=== PATIENT | female | born 1990 ===

== ENCOUNTER 2022-11-13 19:50 | Observation (INO) ==
[2022-11-13] MEDS ORDERED: KETOROLAC TROMETHAMINE 15 MG/ML VIAL IV STA (20:13)
[2022-11-13] MEDS ORDERED: SODIUM CHLORIDE 0.9% 1000ML 1,000 ML IV ONE (20:13)
[2022-11-13] MEDS ORDERED: ONDANSETRON INJ 2 MG/ML 2 ML VIAL IV STA (20:13)
[2022-11-13 21:30] LABS: Appearance Urine Clear (Clear); Bacteria Urine Automated Negative (Negative); Bilirubin Urine Negative (Negative); Blood Urine Negative (Negative); Color Urine Dark Yellow; Epithelial Cell Urine Auto >30 /lpf (0-5); Glucose Urine UA Negative (Negative); Ketones Urine 1+ (Negative); Leukocyte Esterase Urine Trace (Negative); Nitrite Urine Negative (Negative); Protein Urine Trace (Negative); RBC Urine Automated 0-4 /hpf (0-4); Specific Gravity Urine 1.017 (1.000-1.030); Urobilinogen Urine Negative (Negative); pH Urine 6.5 (4.5-7.5)
[2022-11-13 21:33] LABS: iSTAT Creatinine 0.8 mg/dl (0.6-1.3); iSTAT Hemoglobin 13.3 g/dl (12.0-16.0); iSTAT Ionized Calcium 1.15 mmol/l (1.12-1.32); iSTAT Potassium 3.4 mmol/L (3.3-5.0)
[2022-11-13 21:46] LABS: Basophils # (auto) 0.03 K/uL (0-0.2); Basophils % (auto) 0.2 %; Hematocrit (blood only) 36.6 % (37.0-47.0); Hemoglobin 12.5 g/dl (12.0-16.0); Immature Granulocytes # (auto) 0.06 K/uL (0.01-0.20); Immature Granulocytes % (auto) 0.4 %; Lymphocytes # (auto) 1.31 K/uL (1.2-3.4); Lymphocytes % (auto) 8.7 %; Mean Corpuscular Hemoglobin 30.5 pg (25.0-34.0); Mean Corpuscular Hgb Conc 34.2 g/dL (32.0-36.0); Mean Corpuscular Volume 89.3 fL (80.0-100.0); Mean Platelet Volume 11.5 fL (9.4-12.4); Monocytes % (auto) 5.3 %; Neutrophils # (auto) 12.81 K/uL (1.40-6.50); Neutrophils % (auto) 85.4 %; Platelet Count 278 K/uL (130-400); RDW Coefficient of Variation 12.2 % (11.5-14.5); RDW Standard Deviation 39.8 fL (36.4-46.3); White Blood Count 15.01 K/ul (4.8-10.8)
[2022-11-13 21:56] LABS: Alanine Aminotransferase 9 U/L (7-52); Albumin Level 4.1 gm/dl (3.4-5.0); Alkaline Phosphatase 50 U/L (34-104); Anion Gap 9 (3-11); Aspartate Aminotransferase 18 U/L (13-39); BUN Creatinine Ratio 10.4 (10-20); Bilirubin Direct 0.1 mg/dl (0-0.2); Bilirubin,Total 0.8 mg/dl (0.2-1.0); Blood Urea Nitrogen 8 mg/dl (6-23); Calcium 8.8 mg/dl (8.6-10.3); Carbon Dioxide 23 mmol/L (21-32); Chloride 101 mmol/L (98-107); Est GFR (African American) 117.6 ml/min; Est GFR (Non-African American) 101.4 ml/min; Glucose 108 mg/dl (70-99(Fasting)); Lipase 10 U/L (11-82); Potassium 3.5 mmol/L (3.5-5.1); Sodium 133 mmol/L (136-145); Total Protein 7.1 gm/dl (6.0-8.3)
--- NOTE | 2022-11-13 22:36 | Emergency Department Note ---
History of Present Illness General Chief Complaint: Abdominal Pain Stated Complaint: ABDOMINAL PAIN,FEVERISH,ACHY,VOMITING Time Seen by Provider: 11/13/22 19:59 History of Present Illness Provider Complaint: abdominal pain Onset (ago): 2 day(s) Pain Consistency: intermittent Location: periumbilical Radiation: RLQ Severity: mild Maximum Pain Intensity: 3 Current Pain Intensity: 3 Quality: + stabbing and + sharp Relieved By: + nothing Exacerbated By: + nothing Context: no foreign travel, no possible food poisoning, no sick contacts, no recent antibiotic use, no recent surgery/procedure or no recent injury Associated Symptoms: + nausea, + vomiting and + chills; no diarrhea, no hematemesis, no hematochezia, no melena, no hematuria and no headache Treatments prior to arrival: NSAIDs Related Data Patient Confirmed : No Home Medications Medication Instructions Recorded Confirmed Type nitrofurantoin 100 mg PO BID 11/13/22 11/13/22 History monohydrate/macrocrystals 100 mg capsule ondansetron 4 mg disintegrating 4 mg PO UD PRN Nausea 11/13/22 11/13/22 History tablet Allergies Allergy/AdvReac Type Severity Reaction Status Date / Time No Known Allergies Allergy Verified 11/13/22 21:27 Past Med/Surg History Medical History No pertinent family history No pertinent past medical history Surgical History No pertinent past surgical history Social History Smoking Status: Never smoker Preferred Language: Sri [place]ankan Feels Safe at Home: Yes Physical Exam Vital Signs: Vital Signs - 24 hr 11/13/22 19:56 11/13/22 21:00 11/13/22 21:00 Temperature 37.3 C Temperature Source Temporal Artery Sc an Pulse Rate 100 H 82 Pulse Rate [Bilate ral] 85 Respiratory Rate 20 18 18 Respiratory Effort / Characteristics Non-Labored Sponta neous Respiratory Depth Normal Blood Pressure 138/78 Blood Pressure [Le ft Arm] 113/64 Blood Pressure Mallory n 98 Blood Pressure Mallory n [Left Arm] 80 Pulse Oximetry 100 97 96 Oxygen Delivery Me thod Room Air Room Air Room Air Sepsis Recent Feve r Within 48 Hours Yes Sepsis New/Unexpla ined Change in Men brea Status No Sepsis Action Take n by Nursing No Action Required 11/13/22 22:41 11/14/22 00:14 Temperature Temperature Source Pulse Rate Pulse Rate [Bilate ral] 80 96 H Respiratory Rate 18 20 Respiratory Effort / Characteristics Non-Labored Sponta neous Respiratory Depth Normal Blood Pressure Blood Pressure [Le ft Arm] 116/58 L 112/86 Blood Pressure Mallory n Blood Pressure Mallory n [Left Arm] 77 94 Pulse Oximetry 97 96 Oxygen Delivery Me thod Room Air Sepsis Recent Feve r Within 48 Hours Sepsis New/Unexpla ined Change in Men brea Status Sepsis Action Take n by Nursing Physical Exam: Physical Exam GENERAL: She is oriented to person, place, and time. She appears well-developed and well-nourished. She does not appear distressed. HENT: Exam performed. -Head: Normocephalic and atraumatic. -Right Ear: External ear normal. No mastoid erythema -Left Ear: External ear normal. No mastoid erythema -Mouth/Throat: The oropharynx is clear and moist. No trismus in the jaw. No dental abscesses or uvula swelling. No oropharyngeal exudate or tonsillar abscesses. EYES: Conjunctivae and EOM are normal.Right eye exhibits no discharge. Left eye exhibits no discharge. No scleral icterus. NECK: Normal range of motion. Neck supple. No JVD present. No tracheal deviation and normal range of motion present. CV: Normal rate, regular rhythm, normal heart sounds and intact distal pulses. There is no peripheral edema. Palpable radial pulses bue. PULM/CHEST: Effort normal and breath sounds normal. No respiratory distress. No stridor. She has no wheezes. She has no rales. -Chest Wall: She exhibits no tenderness. ABD: The abdomen is soft. Bowel sounds are normal. She has no distension. No mass is present. There is tenderness to palpation of the right lower quadrant and suprapubic area. There is rebound tenderness. No guarding, no Avila's sign. Rovsig negative MUSC/SKEL: Normal range of motion. There is no peripheral edema, tenderness or deformity. NEURO: Motor and sensation grossly intact. SKIN: Skin is warm and dry. She is not diaphoretic. PSYCH: She has a normal mood and affect. Behavior is normal. Judgment and thought content normal. Course Course 1958: The patient was evaluated in room C8. A complete history and physical exam was performed Cardiac monitoring: An order was placed for continuous cardiac monitoring. The monitor shows a rate of 80 with sinus rhythm interpreted by wa 2335: Vital signs stable. Labs show leukocytosis of 15. Imaging shows acute appendicitis with microperforation. Discussed case with Raul Mccormick PA-C for Dr. Benitez states he will be down to evaluate the patient. Zosyn ordered for the patient. 0015: Surgery team Raul Mccormick states that he discussed the case with Dr. Benitez and they will admit the patient to their service tonight and plan on operating the patient in the morning. He asked that LR be ordered for the p atient and patient kept NPO. Administered Medications Discontinued Medications Sodium Chloride (Nss 1000ml) 1,000 mls @ 999 mls/hr IV .[id number] ONE Stop: 11/13/22 21:13 Last Infusion: 11/13/22 22:40 Dose: 0 mls/hr Documented By: Admin: 11/13/22 21:00 Dose: 999 mls/hr Documented By: THEODORE Piperacillin Sod/Tazobactam Sod (Zosyn) 4.5 gm in 120 mls @ 240 mls/hr IV NOW ONE Stop: 11/13/22 23:58 Last Infusion: 11/14/22 00:42 Dose: 0 mls/hr Documented By: Admin: 11/14/22 00:12 Dose: 240 mls/hr Documented By: FRANCESCA Lactated Ringer's (Lr) 1,000 mls @ 80 mls/hr IV .[id number] ELISE Stop: 12/14/22 00:14 Last Admin: 11/14/22 00:43 Dose: Not Given Documented By: FRANCESCA Ioversol (Optiray 320 100ml) 93 ml IV ONCE ONE Stop: 11/13/22 23:06 Last Admin: 11/13/22 23:05 Dose: 93 ml Documented By: CARISA Ketorolac Tromethamine (Ketorolac Tromethamine 15 Mg/Ml Vial) 15 mg IV NOW STA Stop: 11/13/22 20:14 Last Admin: 11/13/22 20:49 Dose: 15 mg Documented By: THEODORE Ondansetron HCl (Ondansetron Inj 2 Mg/Ml 2 Ml Vial) 4 mg IV NOW STA Stop: 11/13/22 20:14 Last Admin: 11/13/22 20:49 Dose: 4 mg Documented By: THEODORE Medical Decision Making Laboratory Data Attestation: I reviewed the patient's lab results. 11/13/22 21:10 11/13/22 21:10 Lab Results 11/13/22 11/13/22 11/13/22 Range/Units 21:10 21:10 21:10 WBC 15.01 H (4.8-10.8) K/ul RBC 4.10 L (4.20-5.40) M/uL Hgb 12.5 (12.0-16.0) g/dl POC Hgb (12.0-16.0) g/dl Hct 36.6 L (37.0-47.0) % POC Hct (37-47) % MCV 89.3 (80.0-100.0) fL MCH 30.5 (25.0-34.0) pg MCHC 34.2 (32.0-36.0) g/dL RDW Std Deviation 39.8 (36.4-46.3) fL RDW Coeff of Wagner 12.2 (11.5-14.5) % Plt Count 278 (130-400) K/uL MPV 11.5 (9.4-12.4) fL Immature Gran % (Auto) 0.4 % Neut % (Auto) 85.4 % Lymph % (Auto) 8.7 % [place] % (Auto) 5.3 % Eos % (Auto) 0.0 % Baso % (Auto) 0.2 % Neut # (Auto) 12.81 H (1.40-6.50) K/uL Lymph # (Auto) 1.31 (1.2-3.4) K/uL [place] # (Auto) 0.80 H (0.11-0.59) K/uL Eos # (Auto) 0.00 (0-0.50) K/uL Baso # (Auto) 0.03 (0-0.2) K/uL Immature Gran # (Auto) 0.06 (0.01-0.20) K/uL POC Sodium (135-144) mmol/L Sodium 133 L (136-145) mmol/L POC Potassium (3.3-5.0) mmol/L Potassium 3.5 (3.5-5.1) mmol/L POC Chloride (101-112) mmol/L Chloride 101 (98-107) mmol/L Carbon Dioxide 23 (21-32) mmol/L POC Total CO2 (24-31) mmol/L Anion Gap 9 (3-11) POC Anion Gap (16-25) mmol/L POC BUN (7-18) mg/dl BUN 8 (6-23) mg/dl Creatinine 0.77 (0.6-1.2) mg/dl POC Creatinine (0.6-1.3) mg/dl Est Cr Clr Drug Dosing Not Reportable Est GFR ( Amer) 117.6 ml/min Est GFR (Non-Af Amer) 101.4 ml/min BUN/Creatinine Ratio 10.4 (10-20) Glucose 108 H (70-99(Fasting)) mg/dl POC Glucose (other) (70-99) mg/dl Calcium 8.8 (8.6-10.3) mg/dl POC Ioniz Calcium Sonia (1.12-1.32) mmol/l Total Bilirubin 0.8 (0.2-1.0) mg/dl Direct Bilirubin 0.1 (0-0.2) mg/dl AST 18 (13-39) U/L ALT 9 (7-52) U/L Alkaline Phosphatase 50 (34-104) U/L Total Protein 7.1 (6.0-8.3) gm/dl Albumin 4.1 (3.4-5.0) gm/dl Lipase 10 L (11-82) U/L HCG, Qual (Negative) Urine Color Dark Yellow Urine Appearance Clear (Clear) Urine pH 6.5 (4.5-7.5) Ur Specific [place] 1.017 (1.000-1.030) Urine Protein Trace H (Negative) Urine Glucose (UA) Negative (Negative) Urine Ketones 1+ H (Negative) Urine Blood Negative (Negative) Urine Nitrite Negative (Negative) Urine Bilirubin Negative (Negative) Urine Urobilinogen Negative (Negative) Ur Leukocyte Esterase Trace H (Negative) Urine WBC (Auto) 1-5 (0-5) /hpf Urine RBC (Auto) 0-4 (0-4) /hpf U Hyaline Cast (Auto) 1-5 (0-5) /lpf U Epithel Cells (Auto) >30 H (0-5) /lpf Urine Bacteria (Auto) Negative (Negative) SARS-CoV-2, RNA, NAAT (NEGATIVE) 11/13/22 11/13/22 11/13/22 Range/Units 21:10 21:20 23:40 WBC (4.8-10.8) K/ul RBC (4.20-5.40) M/uL Hgb (12.0-16.0) g/dl POC Hgb 13.3 (12.0-16.0) g/dl Hct (37.0-47.0) % POC Hct 39 (37-47) % MCV (80.0-100.0) fL MCH (25.0-34.0) pg MCHC (32.0-36.0) g/dL RDW Std Deviation (36.4-46.3) fL RDW Coeff of Wagner (11.5-14.5) % Plt Count (130-400) K/uL MPV (9.4-12.4) fL Immature Gran % (Auto) % Neut % (Auto) % Lymph % (Auto) % [place] % (Auto) % Eos % (Auto) % Baso % (Auto) % Neut # (Auto) (1.40-6.50) K/uL Lymph # (Auto) (1.2-3.4) K/uL [place] # (Auto) (0.11-0.59) K/uL Eos # (Auto) (0-0.50) K/uL Baso # (Auto) (0-0.2) K/uL Immature Gran # (Auto) (0.01-0.20) K/uL POC Sodium 134 L (135-144) mmol/L Sodium (136-145) mmol/L POC Potassium 3.4 (3.3-5.0) mmol/L Potassium (3.5-5.1) mmol/L POC Chloride 98 L (101-112) mmol/L Chloride (98-107) mmol/L Carbon Dioxide (21-32) mmol/L POC Total CO2 21 L (24-31) mmol/L Anion Gap (3-11) POC Anion Gap 20.0 (16-25) mmol/L POC BUN 7 (7-18) mg/dl BUN (6-23) mg/dl Creatinine (0.6-1.2) mg/dl POC Creatinine 0.8 (0.6-1.3) mg/dl Est Cr Clr Drug Dosing Est GFR ( Amer) ml/min Est GFR (Non-Af Amer) ml/min BUN/Creatinine Ratio (10-20) Glucose (70-99(Fasting)) mg/dl POC Glucose (other) 112 H (70-99) mg/dl Calcium (8.6-10.3) mg/dl POC Ioniz Calcium Sonia 1.15 (1.12-1.32) mmol/l Total Bilirubin (0.2-1.0) mg/dl Direct Bilirubin (0-0.2) mg/dl AST (13-39) U/L ALT (7-52) U/L Alkaline Phosphatase (34-104) U/L Total Protein (6.0-8.3) gm/dl Albumin (3.4-5.0) gm/dl Lipase (11-82) U/L HCG, Qual Negative (Negative) Urine Color Urine Appearance (Clear) Urine pH (4.5-7.5) Ur Specific [place] (1.000-1.030) Urine Protein (Negative) Urine Glucose (UA) (Negative) Urine Ketones (Negative) Urine Blood (Negative) Urine Nitrite (Negative) Urine Bilirubin (Negative) Urine Urobilinogen (Negative) Ur Leukocyte Esterase (Negative) Urine WBC (Auto) (0-5) /hpf Urine RBC (Auto) (0-4) /hpf U Hyaline Cast (Auto) (0-5) /lpf U Epithel Cells (Auto) (0-5) /lpf Urine Bacteria (Auto) (Negative) SARS-CoV-2, RNA, NAAT NEGATIVE (NEGATIVE) [facility] Narrative 1959: The patient was evaluated in room C8. A complete history and physical exam was performed Cardiac monitoring: An order was placed for continuous cardiac monitoring. The monitor shows a rate of 80 with sinus rhythm interpreted by me 2335: Vital signs stable. Labs show leukocytosis of 15. Imaging shows acute appendicitis with microperforation. Discussed case with Raul Mccormick PA-C for Dr. Benitez states he will be down to evaluate the patient. Zosyn ordered for the patient. 0015: Surgery team Raul Mccormick states that he discussed the case with Dr. Benitez and they will admit the patient to their service tonight and plan on operating the patient in the morning. He asked that LR be ordered for the patient and patient kept NPO. Impression & Plan Appendicitis Discharge Plan Visit Data Chief Complaint: Abdominal Pain Stated Complaint: ABDOMINAL PAIN,FEVERISH,ACHY,VOMITING ED Provider: Peng Sarkar Discharge Problem: Appendicitis Patient Disposition: Admitted As Inpatient Forms Stand Alone Forms: [facility] Prescriptions Prescriptions: No Action ondansetron 4 mg tablet,disintegrating 4 mg PO UD PRN (Reason: Nausea) nitrofurantoin monohyd/m-cryst 100 mg capsule 100 mg PO BID Referrals Referrals: PCP,NO [Primary Care Provider] -
[2022-11-13] MEDS ORDERED: OPTIRAY 320 100ml IV ONE (23:05)
--- NOTE | 2022-11-13 23:27 | CT Scan Report ---
Exam(s): CT ABDOMEN + PELVIS With Contrast IV Amt: 93ml optiray 320 EXAM: CT Abdomen and Pelvis With Intravenous Contrast CLINICAL HISTORY: Reason for exam: RLQ pain ro appy. TECHNIQUE: Axial computed tomography images of the abdomen and pelvis with intravenous contrast. CTDI is 27.98 mGy and DLP is 1386.69 mGy-cm. Automated exposure control was utilized for the study. A dose lowering technique was utilized adhering to the principles of ALARA. CONTRAST: Patient received 93ml optiray 320 of IV contrast COMPARISON: No relevant prior studies available. FINDINGS: Lung bases: Unremarkable. No mass. No consolidation. ABDOMEN: Liver: Unremarkable. No mass. Gallbladder and bile ducts: Unremarkable. No calcified stones. No ductal dilation. Pancreas: Unremarkable. No mass. No ductal dilation. Spleen: Unremarkable. No splenomegaly. Adrenals: Unremarkable. No mass. Kidneys and ureters: Unremarkable. No solid mass. No hydronephrosis. Stomach and bowel: Unremarkable. No obstruction. No mucosal thickening. PELVIS: Appendix: Positive for appendicitis, consisting of a distended appendix measuring up to 12 mm. Mild-moderate periappendiceal fat stranding. Small foci of extra luminal air, concerning for microperforation. See series 300 image 26. Bladder: Unremarkable. No mass. Reproductive: Unremarkable as visualized. ABDOMEN and PELVIS: Intraperitoneal space: Unremarkable. No free air. No significant fluid collection. Bones/joints: No acute fracture. No dislocation. Soft tissues: Unremarkable. Vasculature: Unremarkable. No abdominal aortic aneurysm. Lymph nodes: Unremarkable. No enlarged lymph nodes. IMPRESSION: Positive for appendicitis, consisting of a distended appendix measuring up to 12 mm. Mild-moderate periappendiceal fat stranding. Small foci of extra luminal air, concerning for microperforation. Surgical evaluation recommended. Communications: Call Doctor Other Electronically signed by: Farhan Kim MD 11/13/22 23:26 PM
[2022-11-13] MEDS ORDERED: PIPERACILLIN/TAZOBACTAM 4.5 GM/120 ML BAG IV ONE (23:29)
[2022-11-14] MEDS ORDERED: LACTATED RINGER'S 1,000 ML IV SCH (00:15)
[2022-11-14] MEDS ORDERED: ONDANSETRON INJ 2 MG/ML 2 ML VIAL IV PRN ×2 (00:38→07:53)
[2022-11-14] MEDS ORDERED: ACETAMINOPHEN 1,000 MG/100 ML VIAL IV PRN (00:38)
--- NOTE | 2022-11-14 00:38 | History & Physical Report ---
Date of Service November 14, 2022 Assessment & Plan (1) Appendicitis: Plan: Due to the patient's clinical presentation, findings on imaging, and laboratories we will admit her to the hospital and proceed as follows: Analgesia will be provided Antiemetics will be provided We will implement n.p.o. status We will hydrate her with intravenous fluids The treating emergency room physician has already initiated antibiotics in the form of Zosyn which we will continue We are tentatively planning on an appendectomy with Dr. Benitez in the morning of 11/14/2022. I have discussed with patient's the risks, benefits, alternatives, and risks of not having the procedure. I have outlined the expected postoperative recovery and she wishes to proceed. We would like to treat the patient initially with antibiotics and the treatment plan outlined above. At the present time the patient is noted to be normotensive with a blood pressure of 112/86. The patient is noted to have a heart rate that ranges between 82 and 100. She has been afebrile since arrival to the emergency department and her respirations are nonlabored. Her pulse oximetry has been 96 to 100% on room air. Review of the chart reveals patient has not had a test performed yet so we will obtain that prior to proceeding with surgery A COVID test has been performed and is noted to be negative. Additional recommendations be forthcoming based on patient's clinical course as it unfolds including findings at time of surgery and her postoperative recovery thereafter. SCDs were used for DVT prevention, no chemical means due to planned surgery She will be a level 1 full code The above plan was discussed with my attending physician Dr. Benitez. Addendum: Serum BHCG results noted and are (-) as above. discussed options/risks of lap appy (bleeding/infection/injury to an organ/blood clots etc....) questions answered. will proceed with lap appy this AM. History of Present Illness Chief Complaint: Abdominal pain Primary Care Provider: NO PCP This is a 32-year-old female who presented to [facility] emergency department secondary to abdominal pain. The patient noted that she was in her usual state of health feeling perfectly fine until the morning of 11/12/2022 when she developed abdominal pain. She noted that the pain was throughout her abdomen in a generalized fashion along with some bloating. She did have associated nausea and vomiting. She did not take her temperature but felt feverish. She does note that the pain was better when she would lie still and it was worse with certain movements. She does note that over the course of the past 24 hours the pain is now shifted to her lower abdomen and is present in a bandlike fashion across her lower abdomen. Because of her symptomatology she presented to a [facility] where she was given an antiemetic and treated for urinary tract infection. The patient does note that she does not have any urinary symptoms such as dysuria or urinary frequency. As the pain has been ongoing she subsequently presented to the emergency department. She denies any prior abdominal surgeries. She notes that she has not had any solid intake in approximate 24 hours but did consume some water throughout the day. Since arrival to the hospital the patient has had labs and imaging which I independently reviewed. CT scan of the abdomen pelvis was performed. On this study the patient was noted to have a distended appendix measuring approximate 12 mm. There is mild to moderate periappendiceal fat stranding and there is a small foci of extraluminal air concerning for a microperforation. There is no intraperitoneal free air. There is no intraperitoneal free fluid. There is no evidence of small bowel obstruction and there is no evidence of biliary disease on the study. Labs include a CBC her white blood cell count was elevated at 15.0. Hemoglobin and platelet count were noted to be within the normal range. The patient's hematocrit was slightly low at 36.6. Chemistry profile showed sodium is 133 with a potassium of 3.5. BUN and creatinine were both within normal range. There is no elevation of patient's LFTs or lipase. A COVID test was performed and was noted to be negative. The patient notes that she leads a very active lifestyle caring for her horses as well as going to a gym approximately 3 times per week where she can do cardiovascular exercise without any limiting factors specifically stating she does not ever get chest pain or shortness of breath. At the time of my interview the patient was resting comfortably in bed and she was in no distress. Concerning past medical history the patient denies any medical problems. Concerning past surgical history the patient has never had any surgeries. Concerning social history patient is currently non-smoker. She did admit to trying cigarettes when she was in her 20s but was not a consistent every day smoker. Concerning family history she does not report any family history of premature cardiovascular disease Allergies Allergy/AdvReac Type Severity Reaction Status Date / Time No Known Allergies Allergy Verified 11/13/22 21:27 Home Medications Medication Instructions Recorded Confirmed Type nitrofurantoin 100 mg PO BID 11/13/22 11/13/22 History monohydrate/macrocrystals 100 mg capsule ondansetron 4 mg disintegrating 4 mg PO UD PRN Nausea 11/13/22 11/13/22 History tablet Past Med/Surg History Medical History No pertinent family history No pertinent past medical history Surgical History No pertinent past surgical history Social History Smoking Status: Never smoker Hx Alcohol Use: Yes Alcohol type: wine Hx Substance Use: No Preferred Language: [place] Communication Ability: Effective Nurse Office Required: No Beliefs That Will Affect Care: None Current Living Situation: Significant Other Other Information That Helps Us Care for You: No Feels Safe at Home: Yes Safety Concerns: Feels Safe At This Time Review of Systems Constitutional: + fever (Patient reports subjective fevers but did not take her temperature) Ear, Nose, Mouth, Throat: no hearing loss Respiratory: no cough and no dyspnea Cardiovascular: no chest pain Gastrointestinal: as per Subjective / HPI Genitourinary: no dysuria Musculoskeletal: no back pain Integumentary: no rash Neurologic: no localized weakness Physical Exam Constitutional: WD/WN, vitals as above Eyes: no conjunctival abnormality ENMT: Ears: no hearing impairment and no external ear abnormality Mouth: no oropharynx abnormality Neck: trachea midline Respiratory: normal respiratory effort, lungs clear to auscultation Cardiovascular: Rate/Rhythm: regular rate and regular rhythm Vessels: dorsalis pedis pulses present and radial pulses present Gastrointestinal (Abdomen): Abdomen is soft without distention. It is nonrigid. Bowel sounds are hypoactive. Patient did have pain with palpation greatest in the right lower quadrant of her abdomen with some associated guarding. She did have some slight rebound tenderness. Musculoskeletal: No calf tenderness Skin: no rashes Neurologic: moves all extremities Psychiatric: A+Ox3, euthymic affect Results & Data Results & Data Vital Signs (Past 12 Hours) Vital Signs Temp Pulse Pulse Resp BP BP Pulse Ox 11/14/22 00:14 96 H 20 112/86 96 11/13/22 22:41 80 18 116/58 L 97 11/13/22 21:00 82 18 96 11/13/22 21:00 85 18 113/64 97 11/13/22 19:56 37.3 C 100 H 20 138/78 100 O2 Del Method 11/14/22 00:14 Room Air 11/13/22 22:41 11/13/22 21:00 Room Air 11/13/22 21:00 Room Air 11/13/22 19:56 Room Air PG Care Time/CCT Total # of Minutes Spent Total Time Spent with Patient: Total time spent is greater than 50% in coordination of care (as documented) at patient's floor/unit and/or counseling patient: Coding Level of Care Code 80196 INT INP/OBS CARE 3/75MIN Diagnoses Appendicitis K37
[2022-11-14 00:57] LABS: Pregnancy Test, Serum Negative (Negative)
[2022-11-14] MEDS: LACTATED RINGER'S 1,000 ML IV SCH ×3 (02:10→17:09)
[2022-11-14] MEDS: MoRPHine SULFATE 4 MG/ML 1 ML CARP\\VIAL IV PRN ×2 (05:26→10:19)
[2022-11-14] MEDS: PIPERACILLIN/TAZOBACTAM 4.5 GM in DEXTROSE 5% 100 ML IV SCH ×3 (06:07→21:44)
--- NOTE | 2022-11-14 07:10 | Anesthesiology Consultation ---
Date of Service November 14, 2022 Assessment & Plan Chart Review Chart Review: Acceptable Risk for Surgery and Patient NOT seen in Pre Admission Testing Consults Requested none ASA [id number] Proposed Anesthesia Anesthesia Type: General Risk / Benefits Reviewed With: PT / POA / Parent / Guardian, Accepts Plan and Informed Consent Obtained History Surgery Operation Date: 11/14/22 13:00 Proposed Procedures p Laparoscopic Appendectomy - Gee Benitez, DO Height/Weight Height: 5 ft 6 in Weight: 91.1 kg Allergies Allergy/AdvReac Type Severity Reaction Status Date / Time No Known Allergies Allergy Verified 11/13/22 21:27 Medications Home Medications Medication Instructions Recorded Confirmed Last Taken nitrofurantoin 100 mg PO BID 11/13/22 11/13/22 Unknown monohydrate/macrocrystals 100 mg capsule ondansetron 4 mg disintegrating 4 mg PO UD PRN Nausea 11/13/22 11/13/22 Unknown tablet Active Medications Generic Name Dose Route Start Last Admin Trade Name Freq PRN Reason Stop Dose Admin Lactated Ringer's 1,000 mls @ 125 mls/hr 11/14/22 00:45 11/14/22 06:10 Lr IV 12/14/22 00:44 0 mls/hr .Q8H ELISE Infusion Piperacillin Sod/Tazobactam 120 mls @ 30 mls/hr 11/14/22 06:00 11/14/22 06:07 Sod 4.5 gm/ Dextrose IV 11/24/22 05:59 30 mls/hr Q8H ELISE Administration Protocol Morphine Sulfate 3 mg 11/14/22 00:38 11/14/22 05:26 Morphine Sulfate 4 Mg/Ml 1 Ml Carp\Vial IV 11/28/22 00:37 3 mg Q3H PRN Administration Severe Pain (Scale 7, 8, 9,10) NPO Date Last Intake of Fluids: 11/13/22 Time Last Intake of Fluids: 18:00 Date Last Intake of Solids: 11/13/22 Time Last Intake of Solids: 17:00 Past Medical History Medical History No pertinent family history No pertinent past medical history Exercise / Class Metabolic Activity II 4-5 Yardwork/Stairs/Walk up hill Past Surgical History Surgical History No pertinent past surgical history Past Anesthesia History No Hx of Anesthesia Complications and No Family Hx of Anesthesia Complications History of PONV No Hx of PONV and No Hx of Motion Sickness Social History Smoking Status: Never smoker Hx Alcohol Use: Yes Alcohol type: wine alcohol intake frequency: a few times a month Hx Substance Use: No Physical Exam Vital Signs Last Vital Signs Temp 37.2 C 11/14/22 06:32 Pulse 95 H 11/14/22 06:32 Resp 18 11/14/22 06:32 BP 141/86 H 11/14/22 06:32 Pulse Ox 100 11/14/22 06:32 O2 Del Method Room Air 11/14/22 06:32 Constitutional + obese; no acute distress ENMT Mouth: no dentition abnormality Thyromental Distance: < 3.5 Finger Breadths Mallampati Class: II Neck normal visual inspection and trachea midline; neck extension not limited Respiratory normal respiratory effort Auscultation: lungs clear to auscultation bilaterally Cardiovascular Rate/Rhythm: regular rate and regular rhythm Heart Sounds: no murmur Vessels: no carotid bruit Musculoskeletal Spine: normal cervical ROM and no pain with cervical ROM Extremities: extremities normal to inspection; full ROM of extremities Neurologic moves all extremities Motor/Sensory: no sensory deficit Psychiatric Orientation: alert and oriented x 3 Testing Laboratory Results 11/13/22 21:10 11/13/22 21:10 Urine Color Dark Yellow 11/13/22 21:10 Urine Appearance Clear (Clear) 11/13/22 21:10 Urine pH 6.5 (4.5-7.5) 11/13/22 21:10 Ur Specific Fromberg 1.017 (1.000-1.030) 11/13/22 21:10 Urine Protein Trace (Negative) H 11/13/22 21:10 Urine Glucose (UA) Negative (Negative) 11/13/22 21:10 Urine Ketones 1+ (Negative) H 11/13/22 21:10 Urine Nitrite Negative (Negative) 11/13/22 21:10 Ur Leukocyte Esterase Trace (Negative) H 11/13/22 21:10 Urine WBC (Auto) 1-5 /hpf (0-5) 11/13/22 21:10 Urine RBC (Auto) 0-4 /hpf (0-4) 11/13/22 21:10 U Hyaline Cast (Auto) 1-5 /lpf (0-5) 11/13/22 21:10 U Epithel Cells (Auto) >30 /lpf (0-5) H 11/13/22 21:10 Urine Bacteria (Auto) Negative (Negative) 11/13/22 21:10 11/13/22 21:20 POC Glucose (other) 112 H
[2022-11-14] MEDS ORDERED: SUGAMMADEX SODIUM 200 MG/2 ML VIAL IV ONE (07:12)
[2022-11-14] MEDS ORDERED: PROPOFOL IV EMULSION 10 MG/ML 20 ML VIAL IV ONE (07:13)
[2022-11-14] MEDS ORDERED: ROCURONIUM BROMIDE 10 MG/ML 5 ML VIAL IV ONE (07:13)
[2022-11-14] MEDS ORDERED: fentaNYL citrate PF 100 MCG/2 ML VIAL ONE ×2 (07:14→08:08)
[2022-11-14] MEDS ORDERED: MIDAZOLAM HCL 1 MG/ML 2ML VIAL ONE (07:14)
[2022-11-14] MEDS ORDERED: BUPIVACAINE/EPINEPHRINE 0.5% MPF 1:200,000 30 ML VIAL ONE (07:21)
[2022-11-14] MEDS ORDERED: FLUMAZENIL 0.1 MG/1 ML 10 ML VIAL IV PRN (07:53)
[2022-11-14] MEDS ORDERED: NALOXONE HCL 0.4 MG/1 ML VIAL/CARP IV PRN (07:53)
[2022-11-14] MEDS ORDERED: ePHEDrine sulfate 50 MG/ML AMP IV PRN (07:53)
[2022-11-14] MEDS ORDERED: PROMETHAZINE HCL 12.5 MG in SODIUM CHLORIDE 0.9% 50 ML IV PRN (07:53)
[2022-11-14] MEDS ORDERED: ATROPINE SULFATE 0.1 MG/ML 10ML SYR IV PRN (07:53)
[2022-11-14] MEDS ORDERED: fentaNYL citrate PF 100 MCG/2 ML VIAL IV PRN (07:53)
--- NOTE | 2022-11-14 08:20 | Post Operative Brief Note ---
PG Immediate Post Op with CF Date of Surgery November 14, 2022 Pre & Post Diagnosis Operation Date: 11/14/22 13:00 Pre-Op Diagnosis: Acute Appendicitis Post-Op Diagnosis: Acute Appendicitis I identified the patient and participated in the time-out.: Yes Procedure Operation Date: 11/14/22 13:00 Actual Procedures p Laparoscopic Appendectomy(Not Applicable) - Gee Benitez DO Surgeon Gee Benitez DO Cantilever Crane Operator n/a Estimated Blood Loss 5 Findings Consistent with Post-Op Diagnosis Specimens Specimen Description: A. Appendix
--- NOTE | 2022-11-14 08:56 | Operative Report ---
PG Post Operative Report Pre & Post Diagnosis Operation Date: 11/14/22 13:00 Pre-Op Diagnosis: Acute Appendicitis Post-Op Diagnosis: Acute Appendicitis I identified the patient and participated in the time-out.: Yes Procedure Operation Date: 11/14/22 13:00 Actual Procedures p Laparoscopic Appendectomy(Not Applicable) - Gee Benitez DO Surgeon Gee Benitez DO Disposal Man n/a Estimated Blood Loss 5 Findings Consistent with Post-Op Diagnosis Specimens appendix Description of Procedure After informed consent was obtained the patient was taken to the operating room and placed in supine position. After successful intubation a Daley catheter was placed and the left arm was tucked. A Daley catheter was inserted sterilely. I began by making a periumbilical incision with an 11 blade scalpel and carried this down through the soft tissue using electrocautery. The anterior rectus fascia was opened using electrocautery and 2 #0 Vicryl stay sutures were placed. The peritoneum was elevated using hemostats and incised under direct vision using a Metzenbaum scissor. A finger sweep was performed. A 12 mm Carrion troc ar was placed and the abdomen was insufflated to 18 mmHg. A laparoscope was inserted and the abdomen was examined in 360. A suprapubic 5 mm port and a left lower quadrant 12 mm port were placed under direct vision. The patient was air planed to the left as well as placed in a slight Trendelenburg position. We began by looking in the right lower quadrant. We were able to readily identify the appendix and it was grossly inflamed. The distal tip appeared mildly necrotic but there was no actual perforation identified. There was some murky fluid throughout the lower abdomen. We immediately irrigated and suctioned this out. I was able to use primarily blunt dissection to pull the appendix away from the right lower quadrant sidewall. Next I made a window in the mesentery of the appendix right at its base with the cecum. I was then able to use a GALLO brown cartridge stapler to transect first the mesentery of the appendix and then the appendix itself at its base with the cecum. It was then placed into an Endo Catch bag and removed from the camera port site. We thoroughly irrigated the right lower quadrant as well as the pelvis. There was adequate hemostasis. I ran the small bowel backwards from the terminal ileum for about 6 feet all of which was normal. All the peritoneal surfaces were normal. Small/ large bowel, liver, stomach etc. all appeared grossly normal. I decided to place a 10 flat Ashok-Sarmiento drain into the pelvis and brought out through one of the trocar sites and secured to the skin using 0 Vicryl. We did a final irrigation and then removed all the trochars and desufflated the abdomen. The fascia of the camera port as well as the left lower quadrant were closed using 0 Vicryl in [id number] fashion. Wounds were all irrigated and closed using 4-0 Monocryl. Marcaine was injected around them for postoperative analgesia and skin glue used as a dressing. The patient was awakened extubated and transferred to recovery in stable condition. I attest to the content of the Intraoperative Record and any orders documented therein. Any exceptions are noted below.
--- NOTE | 2022-11-14 09:21 | Anesthesiology Progress Note ---
Date of Service November 14, 2022 Anesthesia Post Procedure Vital Signs Vital Signs: Temp Pulse Pulse Pulse Pulse Resp BP 11/14/22 09:15 37.2 C 91 H 20 11/14/22 09:05 37.2 C 91 H 20 11/14/22 08:55 94 H 20 11/14/22 08:45 100 H 16 11/14/22 08:37 36.9 C 91 H 14 11/14/22 06:32 37.2 C 95 H 18 11/14/22 02:10 11/14/22 02:10 37.2 C 81 16 11/14/22 01:30 11/14/22 01:01 113/73 11/14/22 00:14 96 H 20 11/13/22 22:41 80 18 11/13/22 21:00 82 18 11/13/22 21:00 85 18 11/13/22 19:56 37.3 C 100 H 20 138/78 BP Pulse Ox O2 Del Method O2 Flow Rate 11/14/22 09:15 132/67 95 Room Air 11/14/22 09:05 128/67 95 Room Air 11/14/22 08:55 118/75 97 Room Air 11/14/22 08:45 132/72 100 Oxymask 4 11/14/22 08:37 123/84 99 Oxymask 4 11/14/22 06:32 141/86 H 100 Room Air 11/14/22 02:10 Room Air 11/14/22 02:10 112/73 99 Room Air 11/14/22 01:30 99 Room Air 11/14/22 01:01 100 Room Air 11/14/22 00:14 112/86 96 Room Air 11/13/22 22:41 116/58 L 97 11/13/22 21:00 96 Room Air 11/13/22 21:00 113/64 97 Room Air 11/13/22 19:56 100 Room Air Pain Intensity Lower Abdomen: Pain Intensity: 3 Transfer of Care Handoff Completed per policy Notes Mental Status: alert / awake / arousable Patient Amnestic to Procedure: Yes Nausea / Vomiting: adequately controlled Pain: adequately controlled Airway Patency, RR, SpO2: stable & adequate BP & HR: stable & adequate Hydration State: stable & adequate Anesthetic Complications: no major complications apparent
[2022-11-14] MEDS ORDERED: oxyCODONE HCL IR 5 MG TAB (IMMEDIATE RELEASE) PO PRN (09:29)
[2022-11-14] MEDS ORDERED: ONDANSETRON INJ 2 MG/ML 2 ML VIAL ONE (12:10)
[2022-11-14] MEDS ORDERED: DEXAMETHASONE SOD INJ 4 MG/ML VIAL ONE (12:10)
[2022-11-15] MEDS: LACTATED RINGER'S 1,000 ML IV SCH ×2 (00:55→07:52)
[2022-11-15] MEDS: PIPERACILLIN/TAZOBACTAM 4.5 GM in DEXTROSE 5% 100 ML IV SCH (05:27)
[2022-11-15 08:14] LABS: Basophils # (auto) 0.02 K/uL (0-0.2); Basophils % (auto) 0.2 %; Eosinophils # (auto) 0.01 K/uL (0-0.50); Eosinophils % (auto) 0.1 %; Hematocrit (blood only) 34.8 % (37.0-47.0); Hemoglobin 11.7 g/dl (12.0-16.0); Immature Granulocytes # (auto) 0.03 K/uL (0.01-0.20); Immature Granulocytes % (auto) 0.3 %; Lymphocytes # (auto) 0.92 K/uL (1.2-3.4); Lymphocytes % (auto) 8.8 %; Mean Corpuscular Hemoglobin 29.8 pg (25.0-34.0); Mean Corpuscular Hgb Conc 33.6 g/dL (32.0-36.0); Mean Corpuscular Volume 88.8 fL (80.0-100.0); Mean Platelet Volume 11.5 fL (9.4-12.4); Monocytes # (auto) 0.47 K/uL (0.11-0.59); Monocytes % (auto) 4.5 %; Neutrophils % (auto) 86.1 %; Platelet Count 248 K/uL (130-400); RDW Coefficient of Variation 12.4 % (11.5-14.5); RDW Standard Deviation 39.9 fL (36.4-46.3); Red Blood Count 3.92 M/uL (4.20-5.40); White Blood Count 10.45 K/ul (4.8-10.8)
--- NOTE | 2022-11-15 09:05 | Surgery Progress Note ---
Date of Service November 15, 2022 Assessment & Plan (1) Appendicitis: Plan: Postoperative day #1 WBC now normal and afebrile AVERY drain serous She clinically looks good. Discussed her options. She would like to go home. We will send her home on antibiotics. Instructions given. Follow-up in 1 week Admission and Anticipated Discharge Date Admission Date: November 14, 2022 Subjective Patient seen. She is feeling much better than yesterday. No nausea. She is tolerating clear liquids Physical Exam Physical Exam: Alert and oriented no acute distress Abdomen is soft. Her incisions look good AVERY drain with serous output Results & Data Vital Signs (Past 12 Hours) Vital Signs Temp Pulse Resp BP Pulse Ox O2 Del Method 11/15/22 07:16 37 C 96 H 18 114/77 96 Room Air 11/15/22 03:00 36.9 C 99 H 18 115/72 94 Room Air 11/14/22 23:00 37.2 C 100 H 18 111/74 95 Room Air PG Care Time/CCT Total # of Minutes Spent Total Time Spent with Patient: Total time spent is greater than 50% in coordination of care (as documented) at patient's floor/unit and/or counseling patient: Coding Level of Care Code 80642 Post Operative Follow-Up Diagnoses Appendicitis K35.32 Acute appendicitis type: with localized peritonitis Appendicitis abscess presence: without abscess Appendicitis gangrene presence: without gangrene Appendicitis perforation presence: with perforation Appendicitis type: acute appendicitis (1) Appendicitis Acute appendicitis type: with localized peritonitis Appendicitis abscess presence: without abscess Appendicitis gangrene presence: without gangrene Appendicitis perforation presence: with perforation Appendicitis type: acute appendicitis Qualified Code(s): K35.32 - Acute appendicitis with perforation, localized peritonitis, and gangrene, without abscess
--- NOTE | 2022-11-22 21:37 | Discharge Summary ---
Date of Service November 22, 2022 Admission HPI Per Admitting Provider This is a 32-year-old female who presented to [facility] emergency department secondary to abdominal pain. The patient noted that she was in her usual state of health feeling perfectly fine until the morning of 11/12/2022 when she developed abdominal pain. She noted that the pain was throughout her abdomen in a generalized fashion along with some bloating. She did have associated nausea and vomiting. She did not take her temperature but felt feverish. She does note that the pain was better when she would lie still and it was worse with certain movements. She does note that over the course of the past 24 hours the pain is now shifted to her lower abdomen and is present in a bandlike fashion across her lower abdomen. Because of her symptomatology she presented to a [facility] where she was given an antiemetic and treated for urinary tract infection. The patient does note that she does not have any urinary symptoms such as dysuria or urinary frequency. As the pain has been o ngoing she subsequently presented to the emergency department. She denies any prior abdominal surgeries. She notes that she has not had any solid intake in approximate 24 hours but did consume some water throughout the day. Since arrival to the hospital the patient has had labs and imaging which I independently reviewed. CT scan of the abdomen pelvis was performed. On this study the patient was noted to have a distended appendix measuring approximate 12 mm. There is mild to moderate periappendiceal fat stranding and there is a small foci of extraluminal air concerning for a microperforation. There is no intraperitoneal free air. There is no intraperitoneal free fluid. There is no evidence of small bowel obstruction and there is no evidence of biliary disease on the study. Labs include a CBC her white blood cell count was elevated at 15.0. Hemoglobin and platelet count were noted to be within the normal range. The patient's hematocrit was slightly low at 36.6. Chemistry profile showed sodium is 133 with a potassium of 3.5. BUN and creatinine were both within normal range. There is no elevation of patient's LFTs or lipase. A COVID test was performed and was noted to be negative. The patient notes that she leads a very active lifestyle caring for her horses as well as going to a gym approximately 3 times per week where she can do cardiovascular exercise without any limiting factors specifically stating she does not ever get chest pain or shortness of breath. At the time of my interview the patient was resting comfortably in bed and she was in no distress. Concerning past medical history the patient denies any medical problems. Concerning past surgical history the patient has never had any surgeries. Concerning social history patient is currently non-smoker. She did admit to trying cigarettes when she was in her 20s but was not a consistent every day smoker. Concerning family history she does not report any family history of premature cardiovascular disease Discharge Data Consultations 11/13/22 23:34 ED Decision to Admit Stat Procedures Performed Operation Date: 11/14/22 13:00 Actual Procedures p Laparoscopic Appendectomy(Not Applicable) - Gee Benitez, Hospital Course (1) Appendicitis: Date of admission: 11/14/2022 Date of discharge: 11/15/2022 This is a 32-year-old female who presented to the emergency department on 11/14/2022. Patient had presented with abdominal pain and CT scan showed findings consistent with appendicitis. Patient was therefore admitted to the hospital and placed on antibiotics. Dr. Benitez took the patient to the operating room later that day where he performed a laparoscopic appendectomy. Patient was served in the hospital an additional day and was ultimately discharged home on 11/15/2022. She was instructed on appropriate wound care, diet, and activity. She was instructed to follow-up with Dr. Benitez in the clinic in approximately 1 week. Coding Diagnoses Appendicitis K35.32 Acute appendicitis type: with localized peritonitis Appendicitis abscess presence: without abscess Appendicitis gangrene presence: without gangrene Appendicitis perforation presence: with perforation Appendicitis type: acute appendicitis
== END 2022-11-15 11:45 | disposition home or self-care (01) ==
LOC: ED 19:50 → 3W 11-14 00:40 → INTOOBSV 11-14 00:40 → 3W 11-14 01:35
DX: Z68.32 Body mass index [BMI] 32.0-32.9, adult; Z20.822 Contact with and (suspected) exposure to COVID-19; E66.9 Obesity, unspecified; K35.891 Other acute appendicitis without perforation, with gangrene